=== PATIENT | male | born 1950 | race Caucasian/White ===

== ENCOUNTER 2021-10-28 15:28 | Outpatient (REF) | payer SELFPAY ==
--- NOTE | 2021-10-28 15:43 | MHC.AU.HFU ---
Hearing Instrument Follow-Up- Binaural Date of Visit: 10/28/21 Right Ear: Ball Worker: Phonak Model: Safe N Clear Q 90-M13 BTE Serial Number: [id number] Repair Warranty: Battery Size: 13 Color: Silver Leong Tubing: #2 slim tube Type of Dome: Large Closed Type of Wax Guard: None Dispensed By: [facility] Date of Fittin06/01/2013 Left Ear: Ball Worker: Phonak Model: Safe N Clear Q 90-M13 BTE Serial Number: [id number] Repair Warranty: Battery Size: 13 Color: Silver Leong Tubing: #2 slim tube Type of Dome: Large Closed Type of Wax Guard: None Dispensed By: [facility] Date of Fittin06/01/2013 Follow-Up Summary: Right hearing aid stopped working. Listening check confirmed. Took slim tube off aid and the aid now working. Changed slim tubes and domes. Cleaned microphones and contacts with significant improvement in sound quality. Patient paid $10.00 Recommendations:Hearing instrument follow-up or maintenance as needed. Recommendations (Other): Advise audiologic re-evaluation. Patient will call PCP for order. Diagnosis Code(s): Primary Diagnosis: H90.3 Bilateral Sensorineural Hearing Loss Signature:Provider: Jerome Camejo, CCC-A
== END 2021-10-28 15:29 | disposition home or self-care (01) ==
LOC: HO.HAP 15:28
PROVIDERS: Visit Provider Family Medicine
DX: Z01.118 Encounter for examination of ears and hearing with other abnormal findings (principal); H90.3 Sensorineural hearing loss, bilateral
CPT/HCPCS: 99499

== ENCOUNTER 2021-11-20 08:54 | Outpatient (REF) | payer MEDICARE, OTHER, SELFPAY ==
--- NOTE | 2021-11-20 10:37 | MHC.AU.AHA ---
Adult Audiological Evaluation Date of Visit: 11/20/21 Veterans Service Officer Used: Not Applicable Reason for Appointment: Karson was seen for an audiological evaluation to determine if a change in hearing status has occurred. Karson reports good benefit from his hearing devices and was seen recently for a hearing aid maintenance appointment. Patient reports following up with ENT who diagnosed him with Eustachian tube disorder. He stated they are considering treatment options, however, due to Covid restrictions, they have not gone forward with any treatment. Karson reports struggling with allergies at today's appointment and often uses the Valsava maneuver to manage middle ear pressure. He denies any tinnitus, pain, or drainage at today's appointment. He denies any significant changes in his health since his last hearing evaluation. Previous Hearing Test Results: [facility] [place]- 09/13/2019-- Mild sloping to severe sensorineural hearing loss bilaterally with 64% word recognition in the right ear and 60% word recognition in the left ear. Normal middle ear compliance in the left ear and hyper-compliant middle ear system in the right ear. Ear History: Ear used on the phone: None Reported Blocked/Full Sensation in Ear(s): Ear pressure attributed to allergies and Eustachian tube dysfunction Medical History: Medical History: Heart Problems, High Blood Pressure, Arthritis, allergies, ear drum perforation, cardiac condition Medication List: Asprin and Lisinopril Hearing Instrument History- Right Ear: Printer Apprentice: cashcloud Model: [employer] 90-M13 AmeiboE Serial Number: [id number] Battery Size: 13 Repair Warranty: Dispensed By: [facility] Date of Fittin06/01/2013 Hearing Instrument History- Left Ear: Printer Apprentice: cashcloud Model: KargoCard Q 90-M13 AmeiboE Serial Number: [id number] Battery Size: 13 Warranty: Dispensed By: [facility] Date of Fittin06/01/2013 Otoscopy: Right Ear: Canals free of cerumen Left Ear: Canals free of cerumen Tympanometry: Tympanometry performed due to: History of middle ear dysfunction Right Ear: Hypercompliant Middle Ear System (Type Ad) Left Ear: Normal Middle Ear System (Type A) Hearing Evaluation: Transducer(s) Used: Insert Earphones Bone Conduction Method: Conventional Audiometry Stimuli Used: Pure Tones Right Ear: Description of Hearing: Normal hearing threshold at 250 Hz sloping to a borderline severe to profound sensorineural hearing loss. Left Ear: Description of Hearing: Mild sloping to a borderline severe to profound sensorineural hearing loss. Speech Recognition Threshold (SRT): Method Used: Monitored Live Voice Stimuli Used: Spondee Words Right Ear: 50 dB HL Left Ear: 50 dB HL Word Discrimination: Method: Recorded Lists Word Lists Used: NU-6 Right Ear: 60% at 85 dB HL Left Ear: 76% at 85 dB HL Comparison: Compared to the most recent evaluation: Hearing is stable. Middle ear dysfunction persists in the right ear. Compared to most recent evaluation: Stable hearing thresholds when compared to the 09/13/2019 evaluation. Word recognition in the right ear has remained stable. Word recognition in the left ear improved from 60% in 2020 to 76% today. Interpretation of Results: Stable mild to severe sensorineural hearing loss with persistent middle ear dysfunction in the right ear. Recommendations: Audiological re-evaluation in one year. Will send a reminder card. Karson should continue consistent hearing aid use bilaterally and return as needed for hearing aid maintenance. Recommended he continue to follow up with ENT regarding the right sided middle ear dysfunction. Patient should return in one year to monitor the status of his hearing loss. Diagnosis: Primary Diagnosis: H90.3 Bilateral Sensorineural Hearing Loss Secondary Diagnosis: H69.91 Unspecified Eustachian Tube Dysfunction, Right Ear Services Performed: Comprehensive Audiological Evaluation (CPT 62767) Tympanometry (CPT 10217) Signature: Student/Clinical Fellow: Yes: Jeanie Holliday B.A., [employer] Subassembly Repairer I have reviewed/agreed with student/fellow documentation: Yes Provider: Jerome Camejo, [facility]
== END 2021-11-20 08:55 | disposition home or self-care (01) ==
LOC: HO.SH 08:54
PROVIDERS: Visit Provider Family Medicine
DX: H69.91 Unspecified Eustachian tube disorder, right ear (principal)
CPT/HCPCS: 92557; 92567

== ENCOUNTER 2023-02-14 08:18 | Outpatient (REF) | payer MEDICARE, OTHER, SELFPAY | END 2023-02-14 08:19 | disposition home or self-care (01) | LOC: HO.SH 08:18 | PROVIDERS: Visit Provider Family Medicine | DX: Z46.1 Encounter for fitting and adjustment of hearing aid (principal); H90.3 Sensorineural hearing loss, bilateral | CPT/HCPCS: 92552; 92556; 92567 ==

== ENCOUNTER 2023-02-14 09:32 | Outpatient (REF) | payer SELFPAY | END 2023-02-14 09:33 | disposition home or self-care (01) | LOC: HO.HAP 09:32 | PROVIDERS: Visit Provider Family Medicine | DX: Z46.1 Encounter for fitting and adjustment of hearing aid (principal) | CPT/HCPCS: 92593 ==